=== PATIENT | male | born 1950 | race Caucasian/White ===

== ENCOUNTER 2017-01-31 03:57 | Emergency (ER) | payer MEDICARE, MEDICAID ==
[2017-01-31 04:25] LABS: Hematocrit 38 % (42-52); Hemoglobin 13.3 g/dl (14.0-18.0); Mean Corpuscular HGB Conc 35 g/dl (31-36); Mean Corpuscular Hemoglobin 34 pg (27-31); Mean Corpuscular Volume 97 fL (80-94); Mean Platelet Volume 8 um3 (7.4-10.4); Red Blood Count 3.96 10^6/ul (4.0-5.4); Red Cell Distribution Width 13 % (10.5-15)
[2017-01-31 04:41] LABS: Albumin 4.5 g/dL (3.2-5.2); BUN/Creatinine Ratio 17.7 (8-20); Calcium 9.5 mg/dL (8.6-10.3); EGFR African American 56.7 (>60); EGFR Non-African American 44.1 (>60); Globulin 3.3 g/dL (2-4); Potassium 4.1 mmol/L (3.5-5.0); Total Bilirubin 0.5 mg/dL (0.2-1.0); Total Protein 7.8 g/dL (6.4-8.9)
[2017-01-31 04:43] LABS: Troponin I 0.01 ng/mL (<0.04)
--- NOTE | 2017-01-31 05:57 | ED ---
joby Kingsley Timothy, scribed for Miller Figueroa MD on 01/31/17 at 0423 . Shortness of Breath - HPI Summary HPI Summary: Lisandro Moser is a 66 yo male presenting to [facility] with SOB, cough, weakness, and fatigue since 01/27/17, worsening through today. At triage, Pt was SOB and complained that his lungs felt full, and his cough caused hinm to "white out". The cough is worse when he lays down. He is not in any current pain. His MHx includes angina, CAD, cardiac catheterization, cardiac stents 4x 2009, HLD, HTN , CVA 2008, COPD, tobacco use. - History of Current Complaint Time Seen by Provider: 01/31/17 04:16 Hx Obtained From: Patient Onset/Duration: Gradual Onset, Lasting Days, Still Present Timing: Constant Current Severity: Moderate Dyspnea At: Rest Alleviating Factors: Upright Position Associated Signs & Symptoms: Cough (Nonproductive) - Allergy/Home Medications Allergies/Adverse Reactions: Allergies Allergy/AdvReac Type Severity Reaction Status Date / Time Iodide Allergy Hives Verified 01/31/17 04:04 Home Medications: Home Medications Advair 01/31/17 [History] Amlodipine Besylate [Norvasc 5 mg tab] 5 mg PO DAILY 01/31/17 [History Confirmed 01/31/17] Aspirin [Aspirin Enteric Coated 81 MG] 81 mg PO DAILY 01/31/17 [History Confirmed 01/31/17] Atorvastatin* [Lipitor*] 80 mg PO DAILY 01/31/17 [History Confirmed 01/31/17] Ciclopirox [Ciclopirox Treatment] 1 kit TOPICAL DAILY 01/31/17 [History Confirmed 01/31/17] Clopidogrel TAB* [Plavix TAB*] 75 mg PO DAILY 01/31/17 [History Confirmed ] Fluticasone-Salmeterol 250-50* [Advair Diskus 250-50*] 1 puff INH BID 01/31/17 [ History Confirmed 01/31/17] Folic Acid TAB* [Folvite TAB*] 1 mg PO DAILY 01/31/17 [History Confirmed ] Hydrochlorothiazide TAB* [Hydrodiuril TAB*] 25 mg PO DAILY 01/31/17 [History Confirmed 01/31/17] Lisinopril [Zestril 10 MG-] 10 mg PO DAILY 01/31/17 [History Confirmed 01/31/17] Metoprolol Succinate [Toprol Xl] 100 mg PO DAILY 01/31/17 [History Confirmed 05/12] Tadalafil [Cialis] 20 mg PO DAILY 01/31/17 [History Confirmed 01/31/17] Tiotropium CAP.INH* [Spiriva CAP.INH*] 1 cap.inh INH DAILY 01/31/17 [History Confirmed 01/31/17] Vitamin B Complex CAP* [B Complex CAP*] 1 cap PO DAILY 01/31/17 [History Confirmed 01/31/17] PMH/Surg Hx/FS Hx/Imm Hx Endocrine/Hematology History: Denies: Hx Diabetes Cardiovascular History: Reports: Hx Angina, Hx Coronary Artery Disease, Hx Hypercholesterolemia, Hx Hypertension, Other Cardiovascular Problems/Disorders - cardiac stent Denies: Hx Congestive Heart Failure Respiratory History: Reports: Hx Chronic Obstructive Pulmonary Disease (COPD), Other Respiratory Problems/Disorders - copd Neurological History: Reports: Hx CVA - Surgical History Surgery Procedure, Year, and Place: cardiac stents,hernia Infectious Disease History: No Infectious Disease History: Denies: Traveled Outside the [place] in Last 30 Days - Family History Known Family History: Negative: Cardiac Disease, Hypertension, Diabetes - Social History Alcohol Use: Rare Hx Substance Use: No Substance Use Type: Reports: None Smoking Status (MU): Former Smoker Review of Systems Positive: Fatigue Eyes: Negative ENT: Negative Cardiovascular: Negative Positive: Shortness Of Breath, Cough Gastrointestinal: Negative Genitourinary: Negative Musculoskeletal: Negative Skin: Negative Positive: Weakness Psychological: Normal All Other Systems Reviewed And Are Negative: Yes Physical Exam Triage Information Reviewed: Yes Vital Signs On Initial Exam: Initial Vitals Temp Pulse Resp BP Pulse Ox 98.7 F 106 18 134/86 95 01/31/17 04:03 01/31/17 04:03 01/31/17 04:03 01/31/17 04:03 01/31/17 04:03 Vital Signs Reviewed: Yes Appearance: Positive: Well-Appearing, No Pain Distress Skin: Positive: Warm Head/Face: Positive: Normal Head/Face Inspection Eyes: Positive: VIVIENNE ENT: Positive: Hearing grossly normal Neck: Positive: Supple Respiratory/Lung Sounds: Positive: Clear to Auscultation, Breath Sounds Present Cardiovascular: Positive: RRR Abdomen Description: Positive: Nontender, Soft Bowel Sounds: Positive: Present Musculoskeletal: Positive: Strength/ROM Intact Neurological: Positive: Sensory/Motor Intact, Alert, Oriented to Person Place, Time, Normal Gait Psychiatric: Positive: Affect/Mood Appropriate Diagnostics - Vital Signs Vital Signs Temp Pulse Resp BP Pulse Ox 01/31/17 04:03 98.7 F 106 18 134/86 95 - Laboratory Lab Results: Lab Results 01/31/17 01/31/17 01/31/17 Range/Units 04:10 04:10 04:51 WBC 8.0 (3.5-10.8) 10^3/ul RBC 3.96 L (4.0-5.4) 10^6/ul Hgb 13.3 L (14.0-18.0) g/dl Hct 38 L (42-52) % MCV 97 H (80-94) fL MCH 34 H (27-31) pg MCHC 35 (31-36) g/dl RDW 13 (10.5-15) % Plt Count 205 (150-450) 10^3/ul MPV 8 (7.4-10.4) um3 Neut % (Auto) 62.3 (38-83) % Lymph % (Auto) 27.4 (25-47) % Bucks % (Auto) 6.0 (1-9) % Eos % (Auto) 2.4 (0-6) % Baso % (Auto) 1.9 (0-2) % Absolute Neuts (auto) 5.0 (1.5-7.7) 10^3/ul Absolute Lymphs (auto) 2.2 (1.0-4.8) 10^3/ul Absolute Monos (auto) 0.5 (0-0.8) 10^3/ul Absolute Eos (auto) 0.2 (0-0.6) 10^3/ul Absolute Basos (auto) 0.2 (0-0.2) 10^3/ul Absolute Nucleated RBC 0 10^3/ul Nucleated RBC % 0 Sodium 137 (133-145) mmol/L Potassium 4.1 (3.5-5.0) mmol/L Chloride 102 (101-111) mmol/L Carbon Dioxide 26 (22-32) mmol/L Anion Gap 9 (2-11) mmol/L BUN 28 H (6-24) mg/dL Creatinine 1.58 H (0.67-1.17) mg/dL Est GFR ( Amer) 56.7 (>60) Est GFR (Non-Af Amer) 44.1 (>60) BUN/Creatinine Ratio 17.7 (8-20) Glucose 105 H (70-100) mg/dL Calcium 9.5 (8.6-10.3) mg/dL Total Bilirubin 0.50 (0.2-1.0) mg/dL AST 18 (13-39) U/L ALT 18 (7-52) U/L Alkaline Phosphatase 100 (34-104) U/L Troponin I 0.01 (<0.04) ng/mL Total Protein 7.8 (6.4-8.9) g/dL Albumin 4.5 (3.2-5.2) g/dL Globulin 3.3 (2-4) g/dL Albumin/Globulin Ratio 1.4 (1-3) Influenza A (Rapid) Negative (Negative) Influenza B (Rapid) Negative (Negative) Result Diagrams: 01/31/17 04:10 01/31/17 04:10 Lab Statement: Any lab studies that have been ordered have been reviewed, and results considered in the medical decision making process. - Radiology CXR Xray Interpretation: No Acute Changes - No acute disease Radiology Interpretation Completed By: ED Physician - EKG 0404 Cardiac Rate: Tachycardia - 100 BPM EKG Interpretation: Sinus tachycardia @ 100 BPM. Re-Evaluation - Re-Evaluation First Eval Re-Evaluation Time: 06:02 Change: Improved Comment: Pt condition is improved, he is agreeable to be discharged. Course/Dx - Course Assessment/Plan: Lisandro Moser is a 66 yo male presenting to [facility] with SOB, cough , fatigue, and weakness since 01/27/17. His EKG showed sinus tachycardia. His CXR showed no acute disease. His rapid influenza A&B tests were negative. After clinical examination and review of his EKG, CXR, and lab work, notably his troponin of 0.01, he will be discharged home with upper respiratory infection and cough with appropriate instructions. - Diagnoses Provider Diagnoses: Upper respiratory infection, Cough Discharge - Discharge Plan Condition: Stable Disposition: HOME Prescriptions: GuaiFENesin DM* [Robitussin DM*] 10 ml PO Q4H #180 ml Patient Education Materials: Upper Respiratory Infection (ED), Acute Cough (ED) Referrals: Alec Sanches MD [Primary Care Provider] - 2 Days Additional Instructions: Please follow up with your primary care physician regarding your visit to the emergency department today. Return to the emergency department with any new or recurring symptoms. The documentation as recorded by the joby dueñas Timothy accurately reflects the service I personally performed and the decisions made by me, Miller Figueroa MD.
[2017-01-31 06:04] VITALS: BP 130/82
--- NOTE | 2017-01-31 07:47 | RAD ---
INDICATION: Cough and shortness of breath COMPARISON: Similar chest x-ray July 07, 2010 TECHNIQUE: PA and lateral views of the chest were obtained. FINDINGS: The heart and mediastinum are normal in size and contour. The lungs are grossly clear. There is no evidence of large pleural effusion. Visualized bones are normal for the patient's age. There is no radiographic evidence of free air beneath the diaphragm IMPRESSION: No radiographic evidence of acute cardiopulmonary disease.
== END 2017-01-31 06:02 | disposition home or self-care (01) ==
LOC: ED 03:57
DX: J06.9 Acute upper respiratory infection, unspecified (principal); R06.02 Shortness of breath; R05 Cough; R53.1 Weakness; R53.83 Other fatigue
CPT/HCPCS: 36415; 71020; 80053; 84484; 85025; 87502; 93005; 99285

== ENCOUNTER 2019-07-04 19:44 | Emergency (ER) | payer MEDICARE, MEDICAID ==
[2019-07-04] MEDS ORDERED: Ibuprofen TAB* 800 MG PO ONE (20:07)
--- NOTE | 2019-07-04 20:08 | ED ---
Lower Extremity - HPI Summary HPI Summary: Patient is a 69 y/o M w/ Hx of PAD who presents to ED via EMS with complaints of right knee pain. He states that Sx have been present for the past four days, since 06/30/19. He notes that the pain is mostly located at the back of his knee. He denies discrete injury or trauma. Patient reports that his knee had started to feel weak on the evening of 06/30/19. He states that his knee felt weaker the following morning and notes onset of edema at this knee on 07/02/19 morning. He endorses difficulty sleeping and resting as a result of his pain. He denies Hx of knee pain, arthritis, and Lyme disease. Patient states that he has not been outside [place] in the past three years. No CP or SOB is reported. On triage, pain is rated 5/10. Home medications and allergies are reviewed. - History of Current Complaint Chief Complaint: EDExtremityLower Stated Complaint: RIGHT KNEE PAIN PER EMS AND PT Time Seen by Provider: 07/04/19 20:01 Hx Obtained From: Patient Mechanism Of Injury: Unknown - no SHARI reported Onset of Pain: Days, Prior to Arrival Onset/Duration: Days Severity Currently: Moderate Pain Intensity: 5 Pain Scale Used: 0-10 Numeric Timing: Constant, Lasting Days Location: Is Discrete @ - right knee Associated Signs And Symptoms: Positive: Swelling, Knee Pain - right, Other - no CP or SOB - Allergies/Home Medications Allergies/Adverse Reactions: Allergies Allergy/AdvReac Type Severity Reaction Status Date / Time Iodinated Contrast Media Allergy Unknown Verified 07/04/19 19:59 Reaction Details MS Iodide Allergy Hives Verified 07/04/19 19:59 PMH/Surg Hx/FS Hx/Imm Hx Endocrine/Hematology History: Denies: Hx Diabetes Cardiovascular History: Reports: Hx Angina, Hx Coronary Artery Disease, Hx Hypercholesterolemia, Hx Hypertension, Hx Myocardial Infarction, Other Cardiovascular Problems/Disorders - cardiac stent Denies: Hx Congestive Heart Failure Respiratory History: Reports: Hx Chronic Obstructive Pulmonary Disease (COPD), Other Respiratory Problems/Disorders - copd Denies: Hx Asthma History: Denies: Hx Chronic Renal Failure Neurological History: Reports: Hx CVA - Surgical History Surgery Procedure, Year, and Place: cardiac stents,hernia - Immunization History Date of Tetanus Vaccine: utd Date of Influenza Vaccine: utd Infectious Disease History: No Infectious Disease History: Denies: Traveled Outside the [place] in Last 30 Days - Family History Known Family History: Negative: Cardiac Disease, Hypertension, Diabetes - Social History Alcohol Use: Weekly Alcohol Amount: 1 glass red wine every other day Hx Substance Use: No Substance Use Type: Reports: None Hx Tobacco Use: Yes Smoking Status (MU): Former Smoker Type: Cigarettes Review of Systems Constitutional: Other - positive - difficulty sleeping and resting due to pain Negative: Chest Pain Negative: Shortness Of Breath Musculoskeletal: Other - positive - right knee pain Positive: Edema - right knee Positive: Weakness - right knee All Other Systems Reviewed And Are Negative: Yes Physical Exam - Summary Physical Exam Summary: Appearance: Well-appearing, Well-nourished, lying in bed comfortable Skin: Warm, dry, no obvious rash Eyes: sclera anicteric, no conjunctival pallor ENT: mucous membranes moist Neck: deferred Respiratory: No signs of respiratory distress Cardiovascular: Appears well perfused, pulses are nml Abdomen: deferred Musculoskeletal: There is a large effusion at the right knee, no swelling distal to the knee, no redness noted. Neurological: Awake and alert, mentation is normal, speech is fluent and appropriate Psychiatric: affect is normal, does not appear anxious or depressed Triage Information Reviewed: Yes Vital Signs On Initial Exam: Initial Vitals Temp Pulse Resp BP Pulse Ox 98.8 F 120 18 132/78 98 07/04/19 19:57 07/04/19 19:57 07/04/19 19:57 07/04/19 19:57 07/04/19 19:57 Vital Signs Reviewed: Yes Procedures - Procedure Summary Procedure Summary: Right knee arthrocentesis was carried out. Betadine prep was done, 12 mls of clear yellow fluid was drawn from knee and sent for analysis. 80 mg Depo-Medrol was injected into the knee. Diagnostics - Vital Signs Vital Signs Temp Pulse Resp BP Pulse Ox 07/04/19 19:57 98.8 F 120 18 132/78 98 - Laboratory Result Diagrams: 07/04/19 20:36 07/04/19 20:36 Lab Statement: Any lab studies that have been ordered have been reviewed, and results considered in the medical decision making process. - Radiology right knee x-ray Radiology Interpretation Completed By: ED Physician Summary of Radiographic Findings: No acute process, pending official report. - EKG 2004 Cardiac Rate: Tachycardia - rate of 120 BPM EKG Rhythm: Sinus Tachycardia Summary of EKG Findings: EKG showed sinus tachycardia with rate of 120 BPM, RBBB , old inferior infract, no STEMI. This EKG has been reviewed and interpreted by ED physician. Lower Extremity Course/Dx - Course Course Of Treatment: Patient is a 69 y/o M w/ Hx of PAD who presents to ED via EMS with complaints of right knee pain. He states that Sx have been present for the past four days, since 06/30/19. He notes that the pain is mostly located at the back of his knee. He denies discrete injury or trauma. Patient reports that his knee had started to feel weak on the evening of 06/30/19. He states that his knee felt weaker the following morning and notes onset of edema at this knee on 07/02/19 morning. He endorses difficulty sleeping and resting as a result of his pain. He denies Hx of knee pain, arthritis, and Lyme disease. Patient states that he has not been outside [place] in the past three years. No CP or SOB is reported. There is a large effusion at the right knee, no swelling distal to the knee, no redness noted. EKG showed sinus tachycardia with rate of 120 BPM, RBBB, old inferior infract, no STEMI. Right knee X-ray was negative. Bloodwork was obtained. Abnormal values include WBC 11.4, RBC 3.73, Hgb 12.5, Hct 36, MCV 97, MCH 34, absolute neuts 9, absolute monos 1, BUN 37, creatinine 1.86, glucose 127, AST 12, alk phos 122, CRP 51.98. Patient received Motrin 800 mg PO. Right knee arthrocentesis was carried out. Betadine prep was done, 12 mls of clear yellow fluid was drawn from knee and sent for analysis. 80 mg Depo- Medrol was injected into the knee. Synovial fluid had WBC 5791, RBC 152, neutrophils 87. Patient was discharged to home and is advised to follow up with PCP and orthopedic surgeon. He is agreeable with this plan. - Diagnoses Provider Diagnoses: Arthritis of right knee Discharge ED - Sign-Out/Discharge Documenting (check all that apply): Patient Departure - discharge Patient Received Moderate/Deep Sedation with Procedure: No - Discharge Plan Condition: Stable Disposition: HOME Patient Education Materials: Arthritis (ED) Referrals: Charles Calderon MD [Medical Doctor] - Additional Instructions: Some of the blood and synovial fluid tests from the knee fluid take a couple of days to come back, so make an appt with your regular doctor or orthopedic surgeon to go over those and see if you need more evaluation and treatment. I injected some cortisone into the joint which should help tamp down the inflammation and swelling over the next day or so. - Billing Disposition and Condition Condition: STABLE Disposition: Home - Attestation Statements Document Initiated by Aleksandra: Yes Documenting Scribe: DILLON BATISTA Provider For Whom Aleksandra is Documenting (Include Credential): AMPARO BERNARD MD Scribe Attestation: I, DILLON BATISTA, scribed for AMPARO BERNARD MD on 07/05/19 at 0632. Scribe Documentation Reviewed: Yes Provider Attestation: The documentation as recorded by the DILLON dueñas accurately reflects the service I personally performed and the decisions made by me, AMPARO BERNARD MD Status of Scribe Document: Viewed
[2019-07-04 20:42] LABS: ABS Basophils 0.1 10^3/ul (0-0.2); ABS Eosinophils 0.1 10^3/ul (0-0.6); ABS Lymphocytes 1.1 10^3/ul (1.0-4.8); Hematocrit 36 % (42-52); Hemoglobin 12.5 g/dL (14.0-18.0); Lymphocyte % 9.6 %; Mean Corpuscular HGB Conc 35 g/dL (31-36); Mean Corpuscular Hemoglobin 34 pg (27-31); Mean Corpuscular Volume 97 fL (80-94); Mean Platelet Volume 7.6 fL (7.4-10.4); Platelet Count 283 10^3/uL (150-450); Red Blood Count 3.73 10^6 /uL (4.18-5.48); Red Cell Distribution Width 13 % (10-15); White Blood Count 11.4 10^3/uL (3.5-10.8)
[2019-07-04 20:58] LABS: Albumin 4.3 g/dL (3.2-5.2); Albumin/Globulin Ratio 1.6 (1-3); BUN/Creatinine Ratio 19.9 (8-20); C Reactive Protein 51.98 mg/L (<8.01); Calcium 9.6 mg/dL (8.6-10.3); EGFR African American 43.8 (>60); EGFR Non-African American 36.2 (>60); Globulin 2.7 g/dL (2-4); Potassium 3.9 mmol/L (3.5-5.0); Total Bilirubin 0.8 mg/dL (0.2-1.0)
[2019-07-04] MEDS ORDERED: methylPREDNISolone ACETATE 40* 40 MG/ML 1 ML VIAL INTRAARTIC ONE (22:13)
[2019-07-04 22:45] LABS: Body Fluid Source Synovial Fluid
[2019-07-04 22:57] VITALS: BP 123/78
[2019-07-04 23:21] LABS: Body Fluid Band 6 %; Body Fluid Mono 1 %; Body Fluid Variant Lymph 1 %
== END 2019-07-04 22:56 | disposition home or self-care (01) ==
LOC: ED 19:44
DX: M17.11 Unilateral primary osteoarthritis, right knee (principal); M25.461 Effusion, right knee; I73.9 Peripheral vascular disease, unspecified; R00.0 Tachycardia, unspecified; I45.10 Unspecified right bundle-branch block; I25.2 Old myocardial infarction; I10 Essential (primary) hypertension; J44.9 Chronic obstructive pulmonary disease, unspecified; Z95.5 Presence of coronary angioplasty implant and graft; Z86.73 Personal history of transient ischemic attack (TIA), and cerebral infarction without residual deficits; Z88.3 Allergy status to other anti-infective agents; Z91.041 Radiographic dye allergy status; Z87.891 Personal history of nicotine dependence
CPT/HCPCS: 20610; 36415; 80053; 83605; 85025; 86140; 86618; 87070; 87205; 87640; 87641; 89051; 89060; 93005; 99283; A9270-GY; J1030